=== PATIENT | male | born 1995 | race Caucasian/White ===

== ENCOUNTER 2018-10-16 11:04 | Emergency (ER) | payer BC ==
[~2018-10-16] VITALS: Wt 69.4 kg
[2018-10-16] MEDS ORDERED: ACET500C5 PO (14:39)
[2018-10-16] MEDS ORDERED: FAMO-96 PO (14:39)
[2018-10-16 14:56] VITALS: BP 121/53; PULSE 55; RESP 18
--- NOTE | 2018-10-16 18:24 | ERD ---
ER Documentation Chief Complaint Chief Complaint ABD PAIN X3 WEEKS, BODYACHES HPI 23-year-old male patient with no significant past medical history presents to ED complaining of lower abdominal pain that started intermittently for 3 weeks. Describes as aching and rates a 6 out of 10. Reports that sometimes it does feel like a burning sensation, tried to take an antacid with minimal relief. Patient reports that he feels nauseous. Denies any fever, chills, night, constipation, chest pain, shortness of breath. Denies any scrotal pain, dysuria. Patient also reports that he was trying to carry a sofa, felt like he injured the right side of his neck. ROS All systems reviewed and are negative except as per history of present illness. Medications Home Meds Active Scripts Acetaminophen* (Tylophen*) 500 Mg Capsule, 1 CAP PO Q6H PRN for PAIN AND OR ELEVATED TEMP, #20 CAP Prov:SOFIE HERR PA-C 10/16/18 Famotidine* (Pepcid*) 20 Mg Tablet, 20 MG PO BID, #20 TAB Prov:SOFIE HERR PA-C 10/16/18 Allergies Allergies: Coded Allergies: No Known Allergy (Unverified , 10/16/18) PMhx/Soc Hx Alcohol Use: No Hx Substance Use: No Hx Tobacco Use: No Smoking Status: Never smoker FmHx Family History: No diabetes, No coronary disease Physical Exam Vitals Vital Signs Date Temp Pulse Resp B/P (MAP) Pulse Ox O2 O2 Flow FiO2 Time Delivery Rate 10/16/18 97.1 55 18 121/53 98 Room Air 14:56 (75) 10/16/18 97.1 90 17 127/59 98 11:06 (81) Physical Exam Const: [id number], well-nourished. In no acute distress. Head: Atraumatic, normocephalic Eyes: Normal Conjunctiva without injection. No purulent discharge. ENT: Normal external ear, nose. Moist oropharynx without tonsillar exudates. Non-erythematous pharynx. Uvula midline. No drooling. No trismus. Neck: No cervical midline tenderness. Full range of motion. No meningismus. No cervical lymphadenopathy. No JVD. Resp: Clear to auscultation bilaterally. No wheezing, rhonchi, rales, or crackles. No accessory muscle use. No retractions. Cardio: Regular rate and rhythm. No murmurs, rubs or gallops. Abd: Soft, nontender, non distended. Normal bowel sounds. No palpable masses. No rebound tenderness. No guarding. Negative McBurney's point. Negative psoas sign. Negative obturator sign. Skin: No petechiae or rashes Back: No midline tenderness. No CVA tenderness. Ext: No cyanosis, or edema. Neur: Awake and alert. Normal gait. Normal coordination. Psych: Normal Mood and Affect Results 24 hrs Laboratory Tests Test 10/16/18 11:45 White Blood Count 10.4 10^3/ul Red Blood Count 5.05 10^6/ul Hemoglobin 14.9 g/dl Hematocrit 45.6 % Mean Corpuscular Volume 90.3 fl Mean Corpuscular Hemoglobin 29.5 pg Mean Corpuscular Hemoglobin Concent 32.7 g/dl Red Cell Distribution Width 12.3 % Platelet Count 314 10^3/UL Mean Platelet Volume 8.8 fl Immature Granulocytes % 0.200 % Neutrophils % 71.8 % Lymphocytes % 21.7 % Monocytes % 5.2 % Eosinophils % 0.7 % Basophils % 0.4 % Nucleated Red Blood Cells % 0.0 /100WBC Immature Granulocytes # 0.020 10^3/ul Neutrophils # 7.5 10^3/ul Lymphocytes # 2.3 10^3/ul Monocytes # 0.5 10^3/ul Eosinophils # 0.1 10^3/ul Basophils # 0.0 10^3/ul Nucleated Red Blood Cells # 0.0 10^3/ul Urine Color STRAW Urine Clarity CLEAR Urine pH 7.0 Urine Specific Mico 1.008 Urine Ketones NEGATIVE mg/dL Urine Nitrite NEGATIVE mg/dL Urine Bilirubin NEGATIVE mg/dL Urine Urobilinogen NEGATIVE mg/dL Urine Leukocyte Esterase NEGATIVE Deandre/ul Urine Hemoglobin NEGATIVE mg/dL Urine Glucose NEGATIVE mg/dL Urine Total Protein NEGATIVE mg/dl Sodium Level 146 mmol/L Potassium Level 5.0 mmol/L Chloride Level 104 mmol/L Carbon Dioxide Level 30 mmol/L Anion Gap 12 Blood Urea Nitrogen 12 mg/dl Creatinine 0.89 mg/dl Est Glomerular Filtrat Rate mL/min > 60 mL/min Glucose Level 101 mg/dl Calcium Level 9.8 mg/dl Total Bilirubin 0.3 mg/dl Direct Bilirubin 0.00 mg/dl Indirect Bilirubin 0.3 mg/dl Aspartate Amino Transf (AST/SGOT) 39 IU/L Alanine Aminotransferase (ALT/SGPT) 41 IU/L Alkaline Phosphatase 79 IU/L Total Protein 8.4 g/dl Albumin 4.8 g/dl Globulin 3.60 g/dl Albumin/Globulin Ratio 1.33 Lipase 47 U/L Procedures/MDM 23-year-old male patient with no significant past medical history presents to the ED complaining of abdominal pain. Patient is afebrile and nontoxic- appearing. Patient was further worked up with CBC, CMP, lipase, UA, CT of the abdomen and pelvis without contrast. After patient was ordered for his abdominal pain, he was complaining of his neck pain. Neck x-ray was ordered to further evaluate patient. CBC: No leukocytosis. No e/o of systemic infection. No e/o anemia. CMP: No e/o severe acidosis, alkalosis, renal failure, diabetic ketoacidosis, liver disease Lipase within normal limits. Urine: No leukocyte esterase, no nitrites, no hematuria. IMPRESSION: Normal cervical spine. IMPRESSION: 1. No CT evidence of mass, lymphadenopathy, or acute inflammatory process. No evidence of bowel obstruction. 2. A 12 mm dense rectangular object seen within the rectum may represent ingested pill tablet or other foreign body. Patient likely sustained a neck pain/strain. Low suspicion for fractures, dislocations, carotid dissection, meningitis or other emergent conditions. Patient likely has gastritis. Low suspicion for testicular torsion, cholecyst itis, choledocholithiasis, cholangitis, pancreatitis, appendicitis, bowel obstruction, ileus, volvulus, nephrolithiasis, pyelonephritis, hepatitis, perforated viscus, diverticulitis, abdominal hernia, acute abdomen, mesenteric ischemia or other emergent conditions. Discussed with Dr. Valle who agreed with the management and discharge plan. Diagnosis: Neck Injury, Abdominal Pain Discharge medications: Tylenol, Famotidine Follow up with primary care physician in 1-2 days. Instructed patient to return to the ED sooner for any worsening symptoms. Patient's questions were answered. Patient is hemodynamically stable. Patient understood and agreed with discharge plan. Patient discharged stable. Disclaimer: Inadvertent spelling and grammatical errors are likely due to EHR/dictation software use and do not reflect on the overall quality of patient care. Also, please note that the electronic time recorded on this note does not necessarily reflect the actual time of the patient encounter. Departure Diagnosis: Primary Impression: Neck injury Encounter type: initial encounter Qualified Codes: S19.9XXA - Unspecified injury of neck, initial encounter Additional Impression: Abdominal pain Abdominal location: unspecified location Qualified Codes: R10.9 - Unspecified abdominal pain Condition: Stable Patient Instructions: Neck Sprain/Strain, Gastritis Vs. Ulcer, Abdominal Pain, Unkown Cause, (Male) [facility] Usted se talavera hecho un examen mdico de control que le indica que no est en min condicin que requiera tratamiento urgente en el Departamento de Emergencia. Un estudio ms profundo y el tratamiento de bonilla condicin pueden esperar sin ningn riesgo hasta que usted sea atendida/o en el consultorio de bonilla mdico o min clnica. Es responsabilidad suya arreglar min keena para el seguimiento del aye. MANEJO DE CONDICIONES NO URGENTES EN EL FUTURO 1) Si usted tiene un mdico de atencin primaria: Usted debera llamar a bonilla mdico de atencin primaria antes de venir al departamento de emergencia. Despus de las horas de consultorio, bonilla doctor o bonilla asociado/a est disponible por telfono. El mdico o enfermero de finn en el servicio telefnico puede asesorarle por segun medio para atender el problema, o aye contrario se puede programar min keena. 2) Si usted no tiene un mdico de atencin primaria: Llame al mdico o clnica de referencia que aparece abajo brenda las horas de consultorio para hacer min keena para que le vean. CLINICAS: [facility] 553 [phone] [address] [facility] 764 [phone] [address] [facility] 397 [phone] [address] [facility] [phone] [facility] [place] [id number] [phone] [facility]. [phone] [address] [facility]. [facility] () Usotilio se talavera hecho un examen mdico de control que le indica que no est en min condicin que requiera tratamiento urgente en el Departamento de Emergencia. Un estudio ms profundo y el tratamiento de bonilla condicin pueden esperar sin ningn riesgo hasta que usted sea atendida/o en el consultorio de bonilla mdico o min clnica. Es responsabilidad suya arreglar min keena para el seguimiento del aye. MANEJO DE CONDICIONES NO URGENTES EN EL FUTURO 1) Si usted tiene un mdico de atencin primaria: Usted debera llamar a bonilla mdico de atencin primaria antes de venir al departamento de emergencia. Despus de las horas de consultorio, bonilla doctor o bonilla asociado/a est disponible por telfono. El mdico o enfermero de finn en el servicio telefnico puede asesorarle por segun medio para atender el problema, o aye contrario se puede programar min keena. 2) Si usted no tiene un mdico de atencin primaria: Llame al mdico o condado institucions de referencia que aparece abajo brenda las horas de consultorio para hacer min keena para que le vean. SI USTED NO PUEDE PAGAR PARA MARYAM UN MEDICO puede ir a: [facility] [address] [place] [address] [facility] [address] [place] [address] [facility] [address] [place] [address] [facility] [address] [place] [address] Additional Instructions: Call your primary care doctor TOMORROW for an appointment during the next 2-3 days.See the doctor sooner or return here if your condition worsens before your appointment time. SOFIE HERR PA-C Oct 16, 2018 18:24
== END 2018-10-16 14:58 | disposition home or self-care (01) ==
LOC: FTE 11:04
DX: S19.9XXA Unspecified injury of neck, initial encounter (principal); S39.91XA Unspecified injury of abdomen, initial encounter; X50.0XXA Overexertion from strenuous movement or load, initial encounter; Y92.9 Unspecified place or not applicable
CPT/HCPCS: 36415; 72040; 74176; 80053; 81003; 83690; 85025